=== PATIENT | male | born 1980 | race Caucasian/White ===

== ENCOUNTER 2018-03-27 17:03 | Inpatient (IN) ==
--- NOTE | 2018-03-27 18:45 | ED ---
HPI General Chief Complaint: Psychiatric Symptoms Stated Complaint: Transfer/Psych Eval Time Seen by Provider: 03/27/18 18:17 Source: patient and old records reviewed Mode of arrival: other (police) Limitations: no limitations History of Present Illness HPI Narrative: Patient is a 37-year-old male presenting to the emergency department under a Nagel act for psychiatric evaluation. Patient was transferred from [facility]. He was seen and evaluated there, medically cleared and then transferred to [facility]. Patient states that he has been depressed and feeling suicidal for the last 6 days. Patient does not elaborate, he states he has had a lot of issues going on. He denies any drug or alcohol use. He reports that he has a history of bipolar disorder. He reports compliance with his medications. He states that his brain has been "all messed up". He states he has not been sleeping in the last 4 days as well. Patient states that he had a previous suicide attempt many years ago, he does not elaborate on this as well. He has no physical complaints at this time. Related Data Home Medications Medication Instructions Recorded Confirmed quetiapine [Seroquel] 400 mg PO BID 03/27/18 03/27/18 trazodone 200 mg PO QPM 03/27/18 03/27/18 Allergies Allergy/AdvReac Type Severity Reaction Status Date / Time Penicillins Allergy Difficulty Verified 03/27/18 17:51 Breathing Review of Systems ROS: all other systems reviewed are negative FOR[facility]LY [facility] Medical History Medical History Asthma (Acute) Bipolar disorder (Acute) PTSD (post-traumatic stress disorder) (Acute) Surgical History Surgical History No history of previous surgery (Acute) Social History Social History Substance History: Active Abuse Second Hand Smoke Exposure: No Smoking Status: Light tobacco smoker Tobacco Type: Cigarettes How Often Do You Have a Drink Containing Alcohol: Never Recent Travel in [facility] within the Last 8 Weeks: No Recent Out of Country Travel within the Last 8 Weeks: No Substance Abuse Detail Marijuana: Substance Use Status: Active Route Used Substance Abuse: Inhalation Substance Frequency: 1-2X/week Reason for Use: Calm Down and Socialization Crack/Cocaine: Substance Use Status: Active Route Used Substance Abuse: Inhalation Substance Frequency: 2x/month Substance Abuse Comment: "For sexual pleasure" Immunization History Tetanus Immunization: Unsure Exam Narrative Exam Narrative: GENERAL: Well-developed, well-nourished, alert male. Presenting in no acute distress. SKIN: Focused skin assessment warm/dry. HEAD: Atraumatic. Normocephalic. EYES: Pupils equal and round. No scleral icterus. No injection or drainage. ENT: No nasal bleeding or discharge. Mucous membranes pink and moist. NECK: Trachea midline. No JVD. CARDIOVASCULAR: Regular rate and rhythm. No murmur appreciated. RESPIRATORY: No accessory muscle use. Clear to auscultation. Breath sounds equal bilaterally. GASTROINTESTINAL: Abdomen soft, non-tender, nondistended. Hepatic and splenic margins not palpable. MUSCULOSKELETAL: No obvious deformities. No clubbing. No cyanosis. No edema. NEUROLOGICAL: Awake and alert. No obvious cranial nerve deficits. Motor grossly within normal limits. Normal speech. PSYCHIATRIC: Appropriate mood and affect; insight and judgment normal. Course Initial Documented Vital Signs Temperature 97.5 F L 03/27/18 17:54 Pulse Rate 70 03/27/18 17:54 Respiratory Rate 14 03/27/18 17:54 Blood Pressure 116/77 03/27/18 17:54 Pulse Oximetry 99 03/27/18 17:54 Last Documented Vital Signs Temperature 97.5 F L 03/27/18 17:54 Pulse Rate 70 03/27/18 17:54 Respiratory Rate 14 03/27/18 17:54 Blood Pressure 116/77 03/27/18 17:54 Pulse Oximetry 99 03/27/18 17:54 Medical Decision Making [facility] Narrative Medical decision making narrative: Patient presented as a transfer from [facility] under Nagel act for psychiatric evaluation at [facility]. Medical records reviewed, patient is medically cleared for psychiatric evaluation. Medical Screen Exam Complete: Yes Emergency Medical Condition: Yes Differential Diagnosis Differential Diagnosis: Mood disorder versus substance abuse versus depression versus malingering versus other Medical Records Medical records reviewed: Yes I reviewed the patient's medical records. Discharge Plan Discharge Disposition Patient Disposition: Sign Out(ED Internal Use Only) Discharge Condition Condition: Stable Discharge Details Diagnosis: Medical clearance for psychiatric admission Physicians Team ED Provider: Rose Gregg ED Midlevel Provider: Anamika Porras Primary Care Provider: Primary Care Physici,No Rxs /Orders / Referrals /Forms Prescriptions: No Action trazodone 100 mg Tablet 200 mg PO QPM RF: 0 quetiapine [Seroquel] 400 mg Tablet 400 mg PO BID RF: 0 Status ED Status: Medically Cleared
[2018-03-27] MEDS: traZODone 100 MG Tablet PO SCH (20:45)
--- NOTE | 2018-03-28 10:53 | ED ---
HPI - Psych - General Source: patient, old records reviewed Mode of arrival: other (police) Limitations: no limitations - History of Present Illness MD complaint: suicidal ideation, other (homicidal ideation) Onset (ago): day(s) Duration: constant History of same: Yes Relieving factors: none Exacerbating factors: drug use Context: recent drug abuse, not taking psychiatric medications Associated psychiatric symptoms: homicidal ideation, racing thoughts, auditory hallucinations Associated symptoms: denies other symptoms Treatments prior to arrival: placed on mental health hold If self harm: admits thoughts of self harm, has plan - General Chief Complaint: Psychiatric Symptoms Stated Complaint: Transfer/Psych Eval Time Seen by Provider: 03/27/18 18:17 - History of Present Illness HPI Narrative: History of Present Illness HPI Narrative: Patient is a 37-year-old, single , homeless, male, reporting psychiatric history of bipolar disorder, PTSD, history of substance use disorder including cocaine, presenting to the emergency department under a Nagel act initiated by ED physician at [facility]. The patient presented there voluntarily requesting an evaluation and reporting suicidal ideation with plan to jump in front of traffic as well as reporting auditory hallucinations. He reported to ED provider here in our ED that " he has been depressed and feeling suicidal for the last 6 days. Patient does not elaborate, he states he has had a lot of issues going on. He denies any drug or alcohol use. He reports that he has a history of bipolar disorder. He reports compliance with his medications. He states that his brain has been "all messed up". He states he has not been sleeping in the last 4 days as well. Patient states that he had a previous suicide attempt many years ago, he does not elaborate on this as well" . Records sent from transferring facility reviewed. Patient reported to them that he was released from an inpatient psychiatric unit on the same day as he presented to the ED. Reported his medications as Seroquel 400 mg twice daily, trazodone 200 mg at bedtime and Xanax 2 mg 3 times daily. His toxicology did not taste positive for benzos. Positive for cocaine. Patient is seen. He was found asleep. Irritable, minimally cooperative, answers most questions with " I don't know or I don't remember". Poor eye contact. Poor frustration tolerance and becomes easily agitated when I attempt to complete the evaluation. He tells me that he came to the hospital because he has been trying to get on his medication as well as trying to get into a program such as a rehabilitation program. He informs me that he has been out of his psychiatric medications for the past 6 days but that he does not remember what the medicines were or who prescribed them, or where he picked them up. The patient continues to report auditory hallucinations that are telling him to harm himself as well as reporting racing thoughts. He has not been observed responding to internal stimuli. Patient continues to report suicidal as well as homicidal ideation at this time. (Daisy Todd) - Related Data Home Medications Medication Instructions Recorded Confirmed quetiapine [Seroquel] 400 mg PO BID 03/27/18 03/27/18 trazodone 200 mg PO QPM 03/27/18 03/27/18 Allergies Allergy/AdvReac Type Severity Reaction Status Date / Time Penicillins Allergy Difficulty Verified 03/27/18 17:51 Breathing PMFSH - History History Provided By: Patient - Medical History Medical History: Medical History (Last Reviewed 03/27/18 @ 18:43 by ZEENAT Ramírez) Asthma Bipolar disorder PTSD (post-traumatic stress disorder) - Surgical History Surgical History: Surgical History (Last Reviewed 03/27/18 @ 18:43 by ZEENAT Ramírez) No history of previous surgery - Tobacco History Second Hand Smoke Exposure: No Tobacco Use In Past 30 Days: Yes Smoking Status: Light tobacco smoker Tobacco Type: Cigarettes - Alcohol History How Often Do You Have a Drink Containing Alcohol: Never - Substance Use History Substance History: Active Abuse - Substance Use Type Marijuana Status: Active Route Used: Inhalation Frequency: 1-2X/week Reason for Use: Calm Down, Socialization Crack/Cocaine Status: Active Route Used: Inhalation Frequency: 2x/month Comment: "For sexual pleasure" - Travel History Recent Travel in the [place] Within the Last 8 Weeks: No Recent Travel Out of the Country Within the Last 8 Weeks: No - Immunization History Tetanus Immunization: Unsure Psychiatric History - Psychiatric History Psychiatric Treatment History: History of Psychiatric Treatment History of Inpatient Treatment: Yes Firearms in Home: No - Psychiatric History Reports he has been diagnosed with bipolar disorder and PTSD after he found his mother 4 years ago. When asked when his last hospitalization was he states I do not know and then later he states that he was at a hospital in [place] but cannot tell me what the name is. He reports 1 previous suicide attempt when he tried to step in front of a bus but cannot remember the date of this event. (Daisy Todd) - Legal History Patient with extensive legal history but unwilling to provide any details. ( Daisy Todd) - Family Psychiatric History Denies any family history of psychiatric illness (Daisy Todd) Physical Exam - General Limitations: no limitations Mental Status Examination Consciousness: Alert Orientation: x4 Motor Activity: Other (in bed) Speech: Unremarkable Language: Adequate Fund of Knowledge: Adequate Attention and Concentration: Inadequate Memory: Impaired (answered most question s with '' I don't remember". ) Mood: Angry, Irritable Affect: Blunt Thought Process & Associations: Intact, Logical, Goal directed Thought Content: Appropriate Hallucination Type: Auditory Delusion Type: None Suicidal Ideation: Yes Suicidal Plan: Yes Suicidal Intention: No Homicidal Ideation: Yes Homicidal Plan: No Homicidal Intention: No Insight: Poor Judgment: Impulsive Initial Documented Vital Signs Temperature 97.5 F L 03/27/18 17:54 Pulse Rate 70 03/27/18 17:54 Respiratory Rate 14 03/27/18 17:54 Blood Pressure 116/77 03/27/18 17:54 Pulse Oximetry 99 03/27/18 17:54 Last Documented Vital Signs Temperature 97.9 F 03/28/18 13:13 Pulse Rate 80 03/28/18 13:13 Respiratory Rate 18 03/28/18 13:13 Blood Pressure 109/67 03/28/18 13:13 Pulse Oximetry 97 03/28/18 13:13 MDM - Psych - Diagnosis (1) Bipolar disorder Code(s): F31.9 - Bipolar disorder, unspecified Status: Acute (2) Cocaine abuse Code(s): F14.10 - Cocaine abuse, uncomplicated Status: Acute (3) Antisocial behavior Status: Acute - [facility] Narrative Medical decision making narrative: At the time of this evaluation the patient is only minimally cooperative with the process. He answers most questions with" I do not know" or" I do not remember" . Whenever attempts are made to obtain further clarification he becomes irritated and angry. He continues to endorse suicidal as well as homicidal ideation, feeling rage, racing thoughts, voices telling me to hurt myself. The patient has presented conflicting information in terms of his the last time he took medication. He reported to [facility] that he had gotten out of a an inpatient psychiatric unit the previous day. He tells us now that he has not taken medications for the past 6 days. The patient in a very flippant way admits to use of substances including cocaine. There is a strong [place] II behaviors noted and malingering his symptoms in order to obtain secondary gains cannot be ruled out. The patient is also positive for cocaine which can certainly contribute in a negative way to his psychiatric symptoms. Nevertheless out of an abundance of caution the patient will be admitted to our inpatient psychiatric unit for further evaluation, for safety and stabilization. (Daisy Todd)
[2018-03-28] MEDS ORDERED: Aluminum/Magnesium/Simethacone Susp 30 ML UDC PO PRN (11:01)
[2018-03-28] MEDS ORDERED: Bisacodyl 10 MG Supp RECTAL PRN (11:01)
[2018-03-28] MEDS: traZODone 100 MG Tablet PO SCH (22:41)
[2018-03-28] MEDS: Senna/Docusate Sodium 8.6/50 MG Tablet PO SCH (22:41)
[2018-03-29 07:57] LABS: Calcium 8.8 mg/dL (8.5-10.1); Carbon Dioxide 29.9 meq/L (21.0-32.0); Potassium 4.6 meq/L (3.5-5.1)
[2018-03-29 07:59] LABS: Chol/HDL Ratio 2.7 Ratio; HDL Cholesterol 47.4 mg/dL (40.0-60.0)
[2018-03-29] MEDS: Senna/Docusate Sodium 8.6/50 MG Tablet PO SCH (08:04)
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
[2018-03-29 16:54] LABS: Hemoglobin A1c 4.8 % (4.3-6.0)
[2018-03-29] MEDS: Acetaminophen 325 MG Tablet PO PRN (18:32)
[2018-03-29] MEDS: traZODone 100 MG Tablet PO SCH (20:08)
[2018-03-30] MEDS: Acetaminophen 325 MG Tablet PO PRN (11:51)
--- NOTE | 2018-03-30 12:20 | P.PNPSY ---
Subjective Chief Complaint: Worsening depression with suicidal thoughts and plan Remarks: Patient seen for follow-up, chart reviewed, patient discussed with nursing staff ; we reviewed the patient's mood, thoughts, and behaviors from overnight and this morning. Nursing reports the patient has been appropriate within the milieu. He denies suicidal or homicidal ideations and he denies auditory or visual hallucinations. Patient has participated minimally with groups. Patient was seen lying in bed while the rest of the unit were at recreational therapy. He reports sleeping very well and continues to feel somnolent after taking his Seroquel and trazodone last night. He reports feeling safe on the unit and denies any active thoughts of harming self or others and he denies any active hallucinations. He was seen alongside the unit social welfare administrator who educated him on substance use treatment programs and the patient agrees to make contact with [facility] for potential acceptance. Review of Systems All other systems reviewed negative except as stated in HPI Mental Status Examination Appearance: Appropriate Consciousness: Alert Orientation: x4 Motor Activity: Normal gait Speech: Unremarkable Language: Adequate Fund of Knowledge: Adequate Attention and Concentration: Adequate Memory: Unremarkable Mood: Sad, Anxious Affect: Blunt Thought Process & Associations: Intact, Logical, Goal directed Thought Content: Appropriate Hallucination Type: None Delusion Type: None Suicidal Ideation: No Suicidal Plan: No Suicidal Intention: No Homicidal Ideation: No Homicidal Plan: No Homicidal Intention: No Insight: Fair Judgment: Impulsive Assessment and Plan - Assessment (1) Bipolar disorder Code(s): F31.9 - Bipolar disorder, unspecified Status: Acute (2) Cocaine abuse Code(s): F14.10 - Cocaine abuse, uncomplicated Status: Acute (3) Cocaine-induced mood disorder Code(s): F14.94 - Cocaine use, unspecified with cocaine-induced mood disorder Status: Suspected - Plan Plan: 03/29/2018: estimated LOS is 5 days. 1. Continue with admission to inpatient psychiatry at [facility]; convert to voluntary/competent legal status. 2. Routine unit precautions. 3. Comfort medications ordered for as needed treatment of constipation, heartburn, diarrhea, and mild pain. 4. Hydroxyzine 50mg po q6H prn anxiety/insomnia. 5. Restart Seroquel 400 mg at bedtime for treatment of bipolar disorder. 6. Restart trazodone 200 mg at bedtime for insomnia. 7. Patient will participate in the unit programming to include group therapies , milieu therapy and recreational therapies. 8. Discharge planning: The patient would like assistance with referrals for substance use treatment and he is willing to go to a program in which he is expected to work, but he will also need assistance and getting a new identification card. 03/30/2018: Good initial response to inpatient stabilization, the patient reports sleeping for the first time for a week and has no complaints about feeling slightly somnolent this morning. Patient chooses to continue his current medications at current doses. The patient chooses to follow up with Decurate Shannan by phone in an effort placed in the [facility]. Continue current medications and inpatient stabilization. Anticipate discharge early next week with assistance and referrals for substance use treatment. Justification for Continued Inpatient Stay: Patient remains an elevated risk for self-harm and will require further inpatient stabilization and preparation of a safe discharge plan. Moving patient to a less restrictive environment at this time may result in decompensation. Request Healthcare Surrogate/Guardian Advocate?: No (1) Bipolar disorder Qualifiers: Active/Remission status: currently active Current bipolar episode type: depressed Current episode severity: severe Psychotic features: without psychotic features Qualified Code(s): F31.4 - Bipolar disorder, current episode depressed, severe, without psychotic features
--- NOTE | 2018-03-30 16:16 | ECG ---
Date Performed: 03/29/2018 Time Performed: 13:45:02 PTAGE: 37 years EKG: Sinus rhythm NORMAL ECG NO PREVIOUS TRACING DOCTOR: Homar Barrera Interpretating Date/Time 03/30/2018 16:14:35
[2018-03-30] MEDS: traZODone 100 MG Tablet PO SCH (20:15)
[2018-03-31] MEDS: Acetaminophen 325 MG Tablet PO PRN (12:22)
--- NOTE | 2018-03-31 15:28 | P.PNPSY ---
Subjective Chief Complaint: Worsening depression with suicidal thoughts and plan Remarks: Reviewed electronic medical records and discussed case with staff. Follow-up was conducted in the hallway with DIONICIO Bal present. Patient states that he feels "so-so". He reports feeling a little stressed. States that he is sleeping and eating well denies any side effects from his medication. Initially reported that he had vague suicidal ideation until he heard that this could keep him from moving to the 26[facility] unit at which time he stated, "I never said that". Mental Status Examination Appearance: Appropriate Consciousness: Alert Orientation: x4 Motor Activity: Normal gait Speech: Unremarkable Language: Adequate Fund of Knowledge: Adequate Attention and Concentration: Adequate Memory: Unremarkable Mood: Sad, Anxious Affect: Blunt Thought Process & Associations: Intact, Logical, Goal directed Thought Content: Appropriate Hallucination Type: None Delusion Type: None Suicidal Ideation: No Suicidal Plan: No Suicidal Intention: No Homicidal Ideation: No Homicidal Plan: No Homicidal Intention: No Insight: Fair Judgment: Impulsive Assessment and Plan - Assessment (1) Bipolar disorder Code(s): F31.9 - Bipolar disorder, unspecified Status: Acute - Plan Plan: Patient will be reevaluated by the attending psychiatrist. Continue with current treatment plan. Justification for Continued Inpatient Stay: Moving this patient to a less restrictive environment would likely result in decompensation. Request Healthcare Surrogate/Guardian Advocate?: No (1) Bipolar disorder Qualifiers: Active/Remission status: currently active Current bipolar episode type: depressed Current episode severity: severe Psychotic features: without psychotic features Qualified Code(s): F31.4 - Bipolar disorder, current episode depressed, severe, without psychotic features
[2018-03-31] MEDS: traZODone 100 MG Tablet PO SCH (20:24)
--- NOTE | 2018-04-01 14:17 | P.PNPSY ---
Subjective Chief Complaint: Worsening depression with suicidal thoughts and plan Remarks: Patient seen and examined with nurse in weekend coverage for Dr. Kelsey. Chart reviewed. Case discussed with nursing staff. No behavioral issues noted. On my examination today, the patient reports that he is doing well. He denies any suicidal or homicidal ideation. Denies any hallucinations. Denies any paranoia. Reports that he is sleeping well. He does say he felt somewhat "down on myself" yesterday but feels improved today. Denies side effects from medications and is satisfied with current psychotropic medication regimen. No physical complaints. Vital Signs Temp Pulse Resp BP Pulse Ox 03/31/18 17:06 97.3 F L 72 18 136/80 99 Labs reviewed. Review of Systems All other systems reviewed negative except as stated in HPI Mental Status Examination Appearance: Appropriate Consciousness: Alert Orientation: x4 Motor Activity: Normal gait, Other (No motor abnormalities noted) Speech: Unremarkable Language: Adequate Fund of Knowledge: Adequate Attention and Concentration: Adequate Memory: Unremarkable Mood: Appropriate Affect: Blunt Thought Process & Associations: Intact, Logical, Goal directed Thought Content: Appropriate Hallucination Type: None Delusion Type: None Suicidal Ideation: No Suicidal Plan: No Suicidal Intention: No Homicidal Ideation: No Homicidal Plan: No Homicidal Intention: No Insight: Fair Judgment: Impulsive Assessment and Plan - Assessment (1) Bipolar disorder Code(s): F31.9 - Bipolar disorder, unspecified Status: Acute (2) Cocaine abuse Code(s): F14.10 - Cocaine abuse, uncomplicated Status: Acute (3) Cocaine-induced mood disorder Code(s): F14.94 - Cocaine use, unspecified with cocaine-induced mood disorder Status: Suspected - Plan Plan: Continue Seroquel and trazodone as ordered. Continue to monitor on the inpatient unit. Continue other medications and care as ordered. Justification for Continued Inpatient Stay: Risk for decompensation in less restrictive environment. Discharge Planning: Per Dr. Kelsey. Request Healthcare Surrogate/Guardian Advocate?: No (1) Bipolar disorder Qualifiers: Active/Remission status: currently active Current bipolar episode type: depressed Current episode severity: severe Psychotic features: without psychotic features Qualified Code(s): F31.4 - Bipolar disorder, current episode depressed, severe, without psychotic features
[2018-04-01] MEDS: traZODone 100 MG Tablet PO SCH (20:27)
[2018-04-02] MEDS ORDERED: traZODone 100 MG Tablet PO ONE (15:30)
--- NOTE | 2018-04-02 15:34 | P.PNPSY ---
Subjective Chief Complaint: Worsening depression with suicidal thoughts and plan Remarks: Patient seen for follow-up, chart reviewed, patient discussed with nursing staff ; we reviewed the patient's mood, thoughts, and behaviors from overnight and this morning. Nurse reports that the patient was out of his room more yesterday but pacing the halls in the evening. Patient has overall been appropriate within the milieu. Patient was observed today during recreational therapy. He was engaged appropriately with the activity. The patient continues to report depressed mood but rates it at 6 out of 10. He reports sleep has improved and his mood seems to be stabilizing but he has been waking up a lot at night and requested an increase to his trazodone. Patient remains motivated to continue his recovery at his previous home in [place] and is looking for help in getting transportation back to [place]. He denies any auditory or visual hallucinations. He denies any active homicidal or suicidal ideations. Review of Systems All other systems reviewed negative except as stated in HPI Mental Status Examination Appearance: Appropriate Consciousness: Alert Orientation: x4 Motor Activity: Normal gait Speech: Unremarkable Language: Adequate Fund of Knowledge: Adequate Attention and Concentration: Adequate Memory: Unremarkable Mood: Appropriate Affect: Blunt Thought Process & Associations: Intact, Logical, Goal directed Thought Content: Appropriate Hallucination Type: None Delusion Type: None Suicidal Ideation: No Suicidal Plan: No Suicidal Intention: No Homicidal Ideation: No Homicidal Plan: No Homicidal Intention: No Insight: Fair Judgment: Impulsive Assessment and Plan - Assessment (1) Bipolar disorder Code(s): F31.9 - Bipolar disorder, unspecified Status: Acute (2) Cocaine abuse Code(s): F14.10 - Cocaine abuse, uncomplicated Status: Acute (3) Cocaine-induced mood disorder Code(s): F14.94 - Cocaine use, unspecified with cocaine-induced mood disorder Status: Suspected - Plan Plan: 04/02/2018: Fair response to treatment, the patient's sleep and mood have improved and his suicidal ideations have resolved. He remains a high risk for self-harm or harm to others due to his severe psychosocial stressors and his polar disorder and recent unstable mood. He has tolerated the start of his medications and is overall satisfied with his care. Continue current inpatient treatment plan and stabilization. Increase trazodone to 250 mg at bedtime for chronic insomnia. Discharge planning: The patient plans to leave the area as soon as he is discharged and is seeking assistance with transportation back to [place] where he will enter into a recovery program per his report. Anticipate discharge early this week. Justification for Continued Inpatient Stay: Patient remains an elevated risk for self-harm and will require further inpatient stabilization and preparation of a safe discharge plan. Moving patient to a less restrictive environment at this time may result in decompensation. Request Healthcare Surrogate/Guardian Advocate?: No (1) Bipolar disorder Qualifiers: Active/Remission status: currently active Current bipolar episode type: depressed Current episode severity: severe Psychotic features: without psychotic features Qualified Code(s): F31.4 - Bipolar disorder, current episode depressed, severe, without psychotic features
[2018-04-02 17:44] VITALS: RESP 18
[2018-04-02] MEDS: traZODone 100 MG Tablet PO SCH (20:22)
--- NOTE | 2018-04-03 16:28 | P.PNPSY ---
Subjective Chief Complaint: Worsening depression with suicidal thoughts and plan Remarks: Patient seen for follow-up, chart reviewed, patient discussed with nursing staff ; we reviewed the patient's mood, thoughts, and behaviors from overnight and this morning. Nurse reports that the patient remains calm and cooperative with care. He denies any complaints of auditory or visual hallucinations. He denies suicidal or homicidal ideations. Patient was observed engaging appropriately with his peers during recreational therapy. He reports improved sleep overnight since the dose of trazodone was increased to 250 mg. He continues to express motivation for his recovery but believes he needs to return to [place] where he has primary support. He continues to deny any financial means for getting back to [place] and declines offers for referral to local recovery centers. Review of Systems All other systems reviewed negative except as stated in HPI Mental Status Examination Appearance: Appropriate Consciousness: Alert Orientation: x4 Motor Activity: Normal gait Speech: Unremarkable Language: Adequate Fund of Knowledge: Adequate Attention and Concentration: Adequate Memory: Unremarkable Mood: Appropriate Affect: Blunt Thought Process & Associations: Intact, Logical, Goal directed Thought Content: Appropriate Hallucination Type: None Delusion Type: None Suicidal Ideation: No Suicidal Plan: No Suicidal Intention: No Homicidal Ideation: No Homicidal Plan: No Homicidal Intention: No Insight: Fair Judgment: Impulsive Assessment and Plan - Assessment (1) Bipolar disorder Code(s): F31.9 - Bipolar disorder, unspecified Status: Acute (2) Cocaine abuse Code(s): F14.10 - Cocaine abuse, uncomplicated Status: Acute (3) Cocaine-induced mood disorder Code(s): F14.94 - Cocaine use, unspecified with cocaine-induced mood disorder Status: Suspected - Plan Plan: 04/02/2018: Fair response to treatment, the patient's sleep and mood have improved and his suicidal ideations have resolved. He remains a high risk for self-harm or harm to others due to his severe psychosocial stressors and his polar disorder and recent unstable mood. He has tolerated the start of his medications and is overall satisfied with his care. Continue current inpatient treatment plan and stabilization. Increase trazodone to 250 mg at bedtime for chronic insomnia. Discharge planning: The patient plans to leave the area as soon as he is discharged and is seeking assistance with transportation back to [place] where he will enter into a recovery program per his report. Anticipate discharge early this week. 04/03/2018: Good response to treatment, the patient's sleep-wake cycle has been normalized and he is denying any auditory or visual hallucinations and he is denying any homicidal or suicidal ideations. The patient remains a high risk of self harm to others due to his severe psychosocial stressors and his bipolar disorder, chronic, and a history of polysubstance abuse, therefore a safe discharge will need to include referrals for substance use treatment as well as mental health treatment. The patient thus far has been uncooperative with efforts to secure treatment in the local area and he is determined to return to his home in [place] where he feels he will have the best chance for recovery due to the primary support there. Unit social media marketer will continue to work with patient to try to find a recovery program in the [facility] as well as try to find ways for the patient to obtain funding for transportation. Anticipate discharge tomorrow morning if he remains stable.. Justification for Continued Inpatient Stay: Patient remains an elevated risk for self-harm and will require further inpatient stabilization and preparation of a safe discharge plan. Moving patient to a less restrictive environment at this time may result in decompensation. Request Healthcare Surrogate/Guardian Advocate?: No (1) Bipolar disorder Qualifiers: Active/Remission status: currently active Current bipolar episode type: depressed Current episode severity: severe Psychotic features: without psychotic features Qualified Code(s): F31.4 - Bipolar disorder, current episode depressed, severe, without psychotic features
[2018-04-03] MEDS: traZODone 100 MG Tablet PO SCH (20:31)
[2018-04-03] MEDS ORDERED: traZODone 100 MG Tablet PO SCH (21:00)
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
[2018-04-04 16:49] VITALS: BP 131/71; PULSE 72; TEMP 98.1; O2SAT 99
[2018-04-04] MEDS: traZODone 100 MG Tablet PO SCH (20:49)
== END 2018-04-05 05:30 | disposition home or self-care (01) ==
LOC: NEPJ 17:03 → NEDA 03-28 11:01 → H270 03-28 13:06 → H260 03-31 13:33
PROVIDERS: ADMIT Psychiatry & Neurology Psychiatry; ATTEND Psychiatry & Neurology Psychiatry